=== PATIENT | male | born 1990 | race Caucasian/White ===

== ENCOUNTER 2016-10-07 10:49 | Emergency (ER) | payer MEDICAID ==
[2016-10-07 11:08] VITALS: BP 169/84
--- NOTE | 2016-10-07 11:28 | EDM.PDOC ---
ED HPI GENERAL MEDICAL PROBLEM - General Chief Complaint: General Stated Complaint: L LEG PAIN Time Seen by Provider: 10/07/16 11:15 Source of Information: Reports: Patient History Limitations: Reports: No Limitations - History of Present Illness Onset: Gradual Onset Date: 09/30/16 Duration: Getting Worse Location: Reports: Lower Extremity, Left (left buttock) Quality: Reports: Ache, Throbbing Severity: Moderate Improves with: Reports: Heat Therapy Worsens with: Reports: Other (sitting) Associated Symptoms: Reports: No Other Symptoms Treatments [employer]: Reports: Home Treatments (warm packs) Left Leg Pain Score (Numeric/FACES): 10 - Related Data Allergies Allergy/AdvReac Type Severity Reaction Status Date / Time ciprofloxacin [From Cipro] Allergy Vomiting Verified 04/29/16 09:25 ciprofloxacin HCl Allergy Vomiting Verified 04/29/16 09:25 [From Cipro] clindamycin Allergy Other Verified 04/29/16 09:25 Penicillins Allergy Cannot Verified 04/29/16 09:25 Remember sulfamethoxazole Allergy Other Verified 04/29/16 09:25 [From Septra] trimethoprim [From Septra] Allergy Other Verified 04/29/16 09:25 Home Meds: Home Meds ALPRAZolam [Xanax] 0.5 mg PO QID 03/13/14 [History] QUEtiapine [SEROquel] 1 tab PO BEDTIME 03/13/14 [History] Past Medical History Genitourinary History: Reports: Other (See Below) Other Genitourinary History: doesn't remember, thinks maybe some kidney & liver failure due to past drug use, hospitalized in [place] Musculoskeletal History: Reports: Back Pain, Chronic, Fracture Neurological History: Reports: Headaches, Chronic Psychiatric History: Reports: Anxiety, Bipolar Dermatologic History: Reports: Other (See Below) Other Dermatologic History: sores on skin = MRSA - Infectious Disease History Infectious Disease History: Reports: Chicken Pox, MRSA - Past Surgical History HEENT Surgical History: Reports: Oral Surgery Social & Family History - Tobacco Use Smoking Status *Q: Former Smoker Years of Tobacco use: 2 Packs/Tins Daily: 0.5 Used Tobacco, but Quit: Yes Month Tobacco Last Used: Dec Second Hand Smoke Exposure: No - Caffeine Use Caffeine Use: Reports: None - Alcohol Use Days Per Week of Alcohol Use: 0 - Recreational Drug Use Recreational Drug Use: Yes Drug Use in Last 12 Months: No 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: Daily Recreational Drug Last Use: 5 years ago ED ROS GENERAL - Review of Systems Review Of Systems: See Below Constitutional: Reports: No Symptoms HEENT: Reports: No Symptoms Respiratory: Reports: No Symptoms Cardiovascular: Reports: No Symptoms Musculoskeletal: Reports: No Symptoms Skin: Reports: Lesions Neurological: Reports: No Symptoms ED EXAM, GENERAL - Physical Exam Exam: See Below Exam Limited By: No Limitations General Appearance: Alert, No Apparent Distress Ears: Normal External Exam Nose: Normal Inspection Throat/Mouth: Normal Inspection Head: Normocephalic Neck: Supple, Full Range of Motion Respiratory/Chest: No Respiratory Distress Cardiovascular: Other (normal rate) Skin Exam: Erythema (with associated tenderness and induration to mid left buttock) ED GENERAL MEDICAL PROCEDURES - Additional/Other Procedure(s) Other (Free Text) Procedure(s): Procedure: Incision and drainage Location: Left buttock Preparation: Chloroprep topical Anesthesia: 3 mL 1% lidocaine with epinephrine Area incised with 0.5 cm cruciate incision using #11 blade. Purulent and bloody discharge. Paper tape and gauze bandage applied. Patient tolerated procedure well. Course - Vital Signs Text/Narrative:: Jonathan Rock is a 26 year old male with history of MRSA and frequent skin abscesses who presents with a skin problem. He has developed an abscess over his left buttock over the past week. He notes some discharge from the lesion if he compresses it. No fevers or spreading erythema from wound. He took leftover doxycycline for 5 of the last 7 days but ran out. On my exam there is a tender, erythematous, moderately fluctuant lesion over left buttock. No spreading erythema and patient had non concerning vitals. I performed an incision and drainage procedure with some purulent but mostly bloody drainage. Appropriate dressing was placed and patient instructed on warm compresses and topical cares. No antibiotics indicated with no associated cellulitis or constitutional symptoms. Follow up with PCP in 3-5 days for recheck of lesion. After consulting [facility] database and patient not having recent opiate prescriptions, I did prescribe short course (8 tablets) of [place] for his acute pain. Last Recorded V/S: Last Vital Signs Temp 97.4 F 10/07/16 12:33 Pulse 83 07/03/17 12:33 Resp 14 10/07/16 12:33 BP 169/84 H 10/07/16 12:33 Pulse Ox 98 10/07/16 12:33 - Orders/Labs/Meds Meds: Medications Discontinued Medications Generic Name Dose Route Start Last Admin Trade Name Rico PRN Reason Stop Dose Admin Lidocaine/Epinephrine 10 ml 10/07/16 11:30 10/07/16 12:40 Xylocaine 1% With Epinephrine 1:100,000 INFILT 10/07/16 11:31 10 ml ONETIME ONE Administration Departure - Departure Time of Disposition: 12:50 Disposition: Home, Self-Care 01 Condition: Good Clinical Impression: Skin abscess Qualifiers: Site of cutaneous abscess: buttock Qualified Code(s): L02.31 - Cutaneous abscess of buttock - Discharge Information Instructions: Incision and Drainage, Care After Referrals: Narciso Herbert Sr, MD [Primary Care Provider] - Forms: ED Department Discharge Additional Instructions: Follow up with Dr. Herbert in 3-5 days for recheck of skin. Return to the Emergency Department with fever, spreading redness from wound, or with worsened symptoms of any kind.
[2016-10-07] MEDS ORDERED: Lidocaine 1% with EPINEPHrine 1:100,000 50 ML MDV INFILT ONE (11:30)
== END 2016-10-07 13:03 | disposition home or self-care (01) ==
LOC: JP.ED 10:49
DX: L02.31 Cutaneous abscess of buttock (principal); F41.9 Anxiety disorder, unspecified; Z98.890 Other specified postprocedural states; Z87.891 Personal history of nicotine dependence; Z88.0 Allergy status to penicillin; Z88.1 Allergy status to other antibiotic agents; Z88.2 Allergy status to sulfonamides
CPT/HCPCS: 10060; 99283-25

== ENCOUNTER 2017-08-29 15:38 | Emergency (ER) | payer MEDICAID ==
[2017-08-29 16:05] VITALS: BP 156/86
[2017-08-29] MEDS ORDERED: Ketorolac 60 MG/2 ML SDV IM ONE (16:38)
[2017-08-29] MEDS ORDERED: Cyclobenzaprine 10 MG Tab PO ONE (16:38)
--- NOTE | 2017-08-29 16:39 | EDM.PDOC ---
ED HPI GENERAL MEDICAL PROBLEM - General Chief Complaint: Back Pain or Injury Stated Complaint: BACK PAIN, NUMBNESS IN LEG Time Seen by Provider: 08/29/17 16:39 Source of Information: Reports: Patient History Limitations: Reports: No Limitations - History of Present Illness INITIAL COMMENTS - FREE TEXT/NARRATIVE: PT ARRIVED WITH SEVERE PAIN GOING DOWN THE LEFT LEG. hE HAS TINGLING IN THE LEFT FOOT. tHIS HAS PROGRESSIVELY GETTING WORSE. hE HAS BEEN DOING ALOT OF LIFTING. Onset: Gradual Duration: Day(s):, Getting Worse Location: Reports: Back Associated Symptoms: Reports: No Other Symptoms Left Lower Back Pain Score (Numeric/FACES): 10 - Related Data Allergies Allergy/AdvReac Type Severity Reaction Status Date / Time ciprofloxacin [From Cipro] Allergy Vomiting Verified 08/29/17 16:10 ciprofloxacin HCl Allergy Vomiting Verified 08/29/17 16:10 [From Cipro] clindamycin Allergy Other Verified 08/29/17 16:10 Penicillins Allergy Cannot Verified 08/29/17 16:10 Remember sulfamethoxazole Allergy Other Verified 08/29/17 16:10 [From Septra] trimethoprim [From Septra] Allergy Other Verified 08/29/17 16:10 Home Meds: Home Meds ALPRAZolam [Xanax] 0.5 mg PO QID 03/13/14 [History] QUEtiapine [SEROquel] 1 tab PO BEDTIME 03/13/14 [History] Methocarbamol 1 - 2 tab PO QID PRN 08/29/17 [History] Past Medical History Genitourinary History: Reports: Other (See Below) Other Genitourinary History: doesn't remember, thinks maybe some kidney & liver failure due to past drug use, hospitalized in [place] Musculoskeletal History: Reports: Back Pain, Chronic, Fracture, Other (See Below ) Other Musculoskeletal History: R elbow pain Neurological History: Reports: Headaches, Chronic Psychiatric History: Reports: Anxiety, Bipolar Dermatologic History: Reports: Other (See Below) Other Dermatologic History: sores on skin = MRSA - Infectious Disease History Infectious Disease History: Reports: Chicken Pox - Past Surgical History HEENT Surgical History: Reports: Oral Surgery GI Surgical History: Reports: Appendectomy Musculoskeletal Surgical History: Reports: Other (See Below) Other Musculoskeletal Surgeries/Procedures:: r arm surgery Social & Family History - Tobacco Use Smoking Status *Q: Former Smoker Used Tobacco, but Quit: No Second Hand Smoke Exposure: No - Caffeine Use Caffeine Use: Reports: None - Alcohol Use Days Per Week of Alcohol Use: 0 - Recreational Drug Use Recreational Drug Use: No ED ROS GENERAL - Review of Systems Review Of Systems: See Below Constitutional: Reports: No Symptoms HEENT: Reports: No Symptoms Respiratory: Reports: No Symptoms Cardiovascular: Reports: No Symptoms Endocrine: Reports: No Symptoms GI/Abdominal: Reports: No Symptoms : Reports: No Symptoms Musculoskeletal: Reports: Other ( SEVERE LOW BACK PAIN, PAIN RADIATING DOWN THE LEFT LEG WITH TINGLING IN THE LEFT FOOT. ) ED EXAM,LOWER BACK PAIN/INJURY - Physical Exam Exam: See Below Text/Narrative:: pT HAS SEVERE PAIN IN THE LEFT LOW BACK WITH PAIN RADIATING DOWN THE LEFT LEG AND HE HAS TINGLING IN THE LEFT FOOT. Exam Limited By: No Limitations General Appearance: Alert, Severe Distress Ears: Normal TMs Nose: Normal Inspection Throat/Mouth: Normal Inspection Head: Atraumatic Neck: Normal Inspection Respiratory/Chest: No Respiratory Distress Cardiovascular: Regular Rate, Rhythm Back Exam: Other (PT HAS TENDERNESS IN THE LEFT BUTTOCK AREA. hE HAS A POSITIVE STRAIGHT LEG RAISING AND WEAKNESS IN THE LEFT GREAT [place]. hE HAS NOT HAD A BLOW TO THE BACK. HE HAS BEEN DOING ALOT OF LIFTING. ) Extremities: Normal Inspection Neurological: Alert Psychiatric: Anxious Course - Vital Signs Last Recorded V/S: Last Vital Signs Temp 36.4 C 08/29/17 16:02 Pulse 75 08/29/17 16:02 Resp 16 08/29/17 16:02 BP 156/86 H 08/29/17 16:02 Pulse Ox 98 08/29/17 16:02 - Orders/Labs/Meds Meds: Medications Discontinued Medications Generic Name Dose Route Start Last Admin Trade Name Freq PRN Reason Stop Dose Admin Cyclobenzaprine HCl 5 mg 08/29/17 16:38 08/29/17 16:48 Flexeril PO 08/29/17 16:39 Not Given ONETIME ONE Ketorolac Tromethamine 60 mg 08/29/17 16:38 08/29/17 16:48 Toradol IM 08/29/17 16:39 Not Given ONETIME ONE Departure - Departure Time of Disposition: 16:39 Disposition: Home, Self-Care 01 Condition: Fair Clinical Impression: Lumbar disc disease - Discharge Information Referrals: Narciso Herbert Sr, MD [Primary Care Provider] - Forms: ED Department Discharge Care Plan Goals: ICE OR HEAT TO THE LOW BACK, FLEXERIL 10 MG 1/2 QAM , QNOON AND 1.5 TABS HS, MOTRIN 600MG PO TID, NORCO 5/325 Q6H PRN # 12 FOR SEVERE PAIN, AVOID LIFTING AND PULLING RTC THE FIRST OF THE WEEK FOR LUMBAR mRI-- XRAY WILL CALL TO SCHEDULE THE mri
== END 2017-08-29 17:06 | disposition home or self-care (01) ==
LOC: JP.ED 15:38
DX: M51.36 Other intervertebral disc degeneration, lumbar region (principal); F31.9 Bipolar disorder, unspecified; F41.9 Anxiety disorder, unspecified; Z88.0 Allergy status to penicillin; Z88.1 Allergy status to other antibiotic agents; Z79.899 Other long term (current) drug therapy; Z87.891 Personal history of nicotine dependence
CPT/HCPCS: 99283

== ENCOUNTER 2018-07-21 10:13 | Emergency (ER) | payer MEDICAID ==
--- NOTE | 2018-07-21 11:13 | EDM.PDOC ---
ED HPI GENERAL MEDICAL PROBLEM - General Chief Complaint: General Stated Complaint: LEFT SIDE NUMB, VOMITING, PASSING OUT Time Seen by Provider: 07/21/18 10:50 Source of Information: Reports: Patient History Limitations: Reports: No Limitations - History of Present Illness INITIAL COMMENTS - FREE TEXT/NARRATIVE: 28-year-old male with chronic anxiety, has been struggling with left-sided numbness, very anxious, intermittent nausea and vomiting and he feels like his legs are going to "give out on him". It started 3 days ago when he was in a local business and started to feel dizzy and lightheaded. He denies any pain. Denies fever, but he is continually "chilled". He's also had 2 consistent days of left facial left arm and left leg numbness. When he takes his Xanax he feels like it "makes him worse". Onset: Gradual Duration: Day(s): (3 days) Worsens with: Reports: Other (Seems to worsen when he takes his Xanax) Associated Symptoms: Reports: Loss of Appetite, Malaise, Nausea/Vomiting, Weakness. Denies: Chest Pain, Cough, Headaches Left Shoulder Pain Score (Numeric/FACES): 6 - Related Data Allergies Allergy/AdvReac Type Severity Reaction Status Date / Time ciprofloxacin [From Cipro] Allergy Vomiting Verified 07/21/18 10:41 ciprofloxacin HCl Allergy Vomiting Verified 07/21/18 10:41 [From Cipro] clindamycin Allergy Other Verified 07/21/18 10:41 Penicillins Allergy Cannot Verified 07/21/18 10:41 Remember sulfamethoxazole Allergy Other Verified 07/21/18 10:41 [From Septra] trimethoprim [From Septra] Allergy Other Verified 07/21/18 10:41 Home Meds: Home Meds ALPRAZolam [Xanax] 0.5 mg PO QID 03/13/14 [History] QUEtiapine [SEROquel] 1 tab PO BEDTIME 03/13/14 [History] Past Medical History Genitourinary History: Reports: Other (See Below) Other Genitourinary History: doesn't remember, thinks maybe some kidney & liver failure due to past drug use, hospitalized in [place] Musculoskeletal History: Reports: Back Pain, Chronic, Fracture, Other (See Below ) Other Musculoskeletal History: R elbow pain Neurological History: Reports: Headaches, Chronic Psychiatric History: Reports: Anxiety, Bipolar, Panic Attack, Suicide Attempt, Suicidal Ideation Dermatologic History: Reports: Other (See Below) Other Dermatologic History: sores on skin = MRSA - Infectious Disease History Infectious Disease History: Reports: MRSA - Past Surgical History HEENT Surgical History: Reports: Oral Surgery GI Surgical History: Reports: Appendectomy Musculoskeletal Surgical History: Reports: Other (See Below) Other Musculoskeletal Surgeries/Procedures:: r arm surgery Social & Family History - Tobacco Use Smoking Status *Q: Former Smoker Used Tobacco, but Quit: Yes Month/Year Tobacco Last Used: quit 5 years ago - Caffeine Use Caffeine Use: Reports: None - Recreational Drug Use Recreational Drug Use: Yes Recreational Drug Type: Reports: Methamphetamine ED ROS GENERAL - Review of Systems Review Of Systems: See Below Constitutional: Reports: Chills, Malaise, Weakness. Denies: Fever HEENT: Denies: Vision Change Respiratory: Denies: Shortness of Breath Cardiovascular: Denies: Chest Pain GI/Abdominal: Reports: Nausea, Vomiting. Denies: Abdominal Pain, Diarrhea : Reports: No Symptoms Musculoskeletal: Reports: No Symptoms Skin: Reports: Diaphoresis (Intermittent diaphoresis over the past 2 days) Neurological: Reports: Dizziness, Weakness. Denies: Headache Psychiatric: Reports: Anxiety ED EXAM, GENERAL - Physical Exam Exam: See Below Exam Limited By: No Limitations General Appearance: Alert, Anxious, Other (Appears to be hyperventilating, very anxious) Eye Exam: Bilateral Eye: Normal Inspection Throat/Mouth: Normal Inspection Head: Atraumatic Neck: Normal Inspection Respiratory/Chest: No Respiratory Distress, Lungs Clear Cardiovascular: Regular Rate, Rhythm GI/Abdominal: Non-Tender Neurological: Alert, Oriented, Other (No reproducible asymmetry of strength of the upper or lower extremities, he does have objective numbness of the left arm and hand with light palpation) Psychiatric: Anxious Skin Exam: Warm, Dry Course - Vital Signs Last Recorded V/S: Last Vital Signs Temp 95.7 F 07/21/18 10:33 Pulse 80 07/21/18 10:33 Resp 20 07/21/18 10:33 BP Pulse Ox 98 07/21/18 10:33 - Orders/Labs/Meds Labs: Laboratory Tests 07/21/18 07/21/18 07/21/18 Range/Units 11:08 11:20 11:20 WBC 9.8 (4.5-11.0) K/uL RBC 5.91 H (4.30-5.90) M/uL Hgb 18.2 H* (12.0-15.0) g/dL Hct 50.4 (40.0-54.0) % MCV 85 (80-98) fL MCH 31 (27-31) pg MCHC 36 (32-36) % Plt Count 266 (150-400) K/uL Neut % (Auto) 81 H (36-66) % Lymph % (Auto) 11 L (24-44) % Robertson % (Auto) 7 H (2-6) % Eos % (Auto) 0 L (2-4) % Baso % (Auto) 0 (0-1) % Puncture Site Rt radial ABG pH 7.541 H (7.350-7.450) ABG pCO2 23.1 L (35.0-42.0) mmHg ABG pO2 115.0 H (75.0-100.0) mmHg ABG HCO3 19.7 L (22.0-26.0) mmol/L ABG Total CO2 15.7 L (23.0-27.0) mmol/L ABG O2 Saturation 99.1 H (95.0-98.0) % ABG O2 Content 25.5 H (15.0-23.0) %vol ABG Base Excess -0.1 mm/L ABG Hemoglobin 18.6 H (13.5-18.0) g/dL ABG Oxyhemoglobin 97.6 % ABG Carboxyhemoglobin 0.8 (0.0-1.6) % ABG Methemoglobin 0.7 % Seth Test Passed O2 Delivery Device Room air Sodium 136 L (140-148) mmol/L Potassium 3.5 L (3.6-5.2) mmol/L Chloride 100 (100-108) mmol/L Carbon Dioxide 26 (21-32) mmol/L Anion Gap 13.5 (5.0-14.0) mmol/L BUN 17 (7-18) mg/dL Creatinine 1.2 (0.8-1.3) mg/dL Est Cr Clr Drug Dosing 116.37 mL/min Estimated GFR (MDRD) > 60 (>60) Glucose 122 H (74-106) mg/dL Calcium 10.1 (8.5-10.1) mg/dL Total Bilirubin 1.4 H D (0.2-1.0) mg/dL AST 56 H D (15-37) U/L ALT 136 H (12-78) U/L Alkaline Phosphatase 110 (46-116) U/L Total Protein 8.9 H (6.4-8.2) g/dL Albumin 4.4 (3.4-5.0) g/dL Globulin 4.5 H (2.3-3.5) g/dL Albumin/Globulin Ratio 1.0 L (1.2-2.2) Meds: Medications Discontinued Medications Generic Name Dose Route Start Last Admin Trade Name Vasquezq PRN Reason Stop Dose Admin Lorazepam 1 mg 07/21/18 11:53 07/21/18 12:07 Ativan IM 07/21/18 11:54 1 mg ONETIME ONE Administration - Re-Assessments/Exams Free Text/Narrative Re-Assessment/Exam: 07/21/18 11:13 ABGs, CBC and CMP were obtained and a head CT ordered without contrast. 07/21/18 11:51 Blood gases showed evidence of persistent hyperventilation, with a pH of 7.5 and CO2 only 23. HCO3 is also low. Hemoglobin is elevated, LFTs and bilirubin also mildly elevated although he has no abdominal symptoms. These may be affected by the hyperventilation as well. He was given 1 mg of IM Ativan, was instructed on bag breathing and given 10 additional doses of Ativan to take instead of Xanax over the next 48 hours. He can recheck in 2-3 days if not improving. Departure - Departure Time of Disposition: 12:15 Disposition: Home, Self-Care 01 Condition: Fair Clinical Impression: Hyperventilation syndrome, Anxiety about health - Discharge Information Instructions: Hyperventilation Referrals: Narciso Herbert Sr, MD [Primary Care Provider] - Forms: ED Department Discharge Care Plan Goals: Hold Xanax for the next few days and use Ativan up to every 6-8 hours as needed for anxiety, and consider bag breathing for 10 minutes every hour. Recheck in 2- 3 days if not improving satisfactorily.
[2018-07-21] MEDS: LORazepam 2 MG/ML SDV IM ONE (12:07)
--- NOTE | 2018-07-21 12:33 | CRLCT ---
INDICATION: left sided numbness [address] HEAD WITHOUT CONTRAST TECHNIQUE: Multiple axial CT images were performed through the head without intravenous contrast administration. COMPARISON: No previous studies are currently available for comparison. FINDINGS: The exam is mildly limited by motion. No acute intracranial hemorrhage is identified. No extra-axial collections are evident and there is no mass effect or midline shift. Ventricles are normal in size and configuration. Brain parenchyma appears normal with unremarkable anne-white differentiation. Osseous structures are within normal limits and no fractures are seen. Included portions of the paranasal sinuses and mastoid air cells are normally aerated. IMPRESSION: Normal non-contrast head CT. REGAN GAMBLE MD [facility] Dictated by: Toan Gamble MD @ 07/21/2018 12:31:17 (Electronically Signed)
== END 2018-07-21 12:15 | disposition home or self-care (01) ==
LOC: JP.ED 10:13
DX: F45.8 Other somatoform disorders (principal); F41.9 Anxiety disorder, unspecified; F31.9 Bipolar disorder, unspecified; Z79.899 Other long term (current) drug therapy; Z87.891 Personal history of nicotine dependence; Z88.2 Allergy status to sulfonamides; Z88.8 Allergy status to other drugs, medicaments and biological substances; Z88.0 Allergy status to penicillin
CPT/HCPCS: 36415; 36600; 70450; 80053; 82803; 85025; 96372; 99284; J2060

== ENCOUNTER 2019-05-31 14:09 | Emergency (ER) | payer MEDICAID ==
[2019-05-31 14:38] VITALS: BP 151/81; PULSE 81
[2019-05-31] MEDS ORDERED: cefOXitin 1 GM Vial IVPUSH ONE (14:46)
--- NOTE | 2019-05-31 14:57 | EDM.PDOC ---
ED HPI GENERAL MEDICAL PROBLEM - General Chief Complaint: Lower Extremity Injury/Pain Stated Complaint: L FOOT INJURY Time Seen by Provider: 05/31/19 14:20 Source of Information: Reports: Patient, Old Records History Limitations: Reports: No Limitations - History of Present Illness INITIAL COMMENTS - FREE TEXT/NARRATIVE: 29 yo male presents with redness to the arch of his L foot after stepping on a new screw last night. He presented to the clinic and was given Levaquin. He presented to the pharmacy and he wouldn't fill the Rx due to documented Cipro allergy. Patient comes here for a second opinion basically. 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 (see below) (Cleaned wound at home.) Left Foot Pain Score (Numeric/FACES): 8 - Related Data Allergies Allergy/AdvReac Type Severity Reaction Status Date / Time clindamycin Allergy Other Verified 05/31/19 14:40 Penicillins Allergy Cannot Verified 05/31/19 14:40 Remember sulfamethoxazole Allergy Other Verified 05/31/19 14:40 [From Septra] trimethoprim [From Septra] Allergy Other Verified 05/31/19 14:40 ciprofloxacin [From Cipro] AdvReac Vomiting Verified 05/31/19 15:10 ciprofloxacin HCl AdvReac Vomiting Verified 05/31/19 15:10 [From Cipro] Home Meds: Home Meds ALPRAZolam [Xanax] 0.5 mg PO QID 03/13/14 [History] QUEtiapine [SEROquel] 1 tab PO BEDTIME 03/13/14 [History] Cephalexin [Keflex] 500 mg PO QID #30 capsule 05/31/19 [Rx] Levofloxacin 1 tab PO DAILY 05/31/19 [History] Minocycline [Minocin] 100 mg PO BID #15 cap 05/31/19 [Rx] Past Medical History HEENT History: Reports: None Gastrointestinal History: Reports: Other (See Below) Other Gastrointestinal History: crohns Genitourinary History: Reports: Other (See Below) Other Genitourinary History: doesn't remember, thinks maybe some kidney & liver failure due to past drug use, hospitalized in [place] Musculoskeletal History: Reports: Back Pain, Chronic, Fracture, Other (See Below ) Other Musculoskeletal History: R elbow pain Neurological History: Reports: Headaches, Chronic Psychiatric History: Reports: Anxiety, Bipolar, Panic Attack, Suicide Attempt, Suicidal Ideation Dermatologic History: Reports: Other (See Below) Other Dermatologic History: sores on skin = MRSA - Infectious Disease History Infectious Disease History: Reports: MRSA - Past Surgical History Head Surgeries/Procedures: Reports: None HEENT Surgical History: Reports: Oral Surgery GI Surgical History: Reports: Appendectomy Male Surgical History: Reports: None Neurological Surgical History: Reports: None Musculoskeletal Surgical History: Reports: Other (See Below) Other Musculoskeletal Surgeries/Procedures:: r arm surgery Dermatological Surgical History: Reports: None Social & Family History - Tobacco Use Smoking Status *Q: Former Smoker Years of Tobacco use: 13 Packs/Tins Daily: 2 Used Tobacco, but Quit: Yes Month/Year Tobacco Last Used: 2013 - Caffeine Use Caffeine Use: Reports: Coffee, Tea - Recreational Drug Use Recreational Drug Use: No Review of Systems - Review of Systems Review Of Systems: See Below Constitutional: Reports: No Symptoms Skin: Reports: Erythema (around puncture site of arch.), Wound (arch of L foot, puncture) Neurological: Reports: No Symptoms ED EXAM, GENERAL - Physical Exam Exam: See Below Exam Limited By: No Limitations General Appearance: Alert, WD/WN, No Apparent Distress Extremities: Increased Warmth (L arch of foot), Redness (L arch of foot) Neurological: Alert, Oriented, CN II-XII Intact, Normal Cognition, No Motor/ Sensory Deficits Skin Exam: Warm, Dry, No Rash, Erythema, Increased Warmth (arch of L foot), Other (no drainage, some early lymphadenitis present.) Course - Vital Signs Last Recorded V/S: Last Vital Signs Temp 36.1 C 05/31/19 14:28 Pulse 81 05/31/19 14:37 Resp 16 05/31/19 14:37 BP 151/81 H 05/31/19 14:37 Pulse Ox 97 05/31/19 14:37 - Orders/Labs/Meds Orders: Active Orders 24 hr Category Date Time Status Vaccines to be Administered [RC] PER UNIT ROUTINE Care 05/31/19 15:01 Active cefOXitin [Mefoxin] 2 gm Med 05/31/19 15:30 Active Sodium Chloride 0.9% [Normal Saline] 50 ml IV ONETIME Medication Orders Cefoxitin Sodium 2 gm/ Sodium (Chloride) 50 mls @ 100 mls/hr IV ONETIME ONE Stop: 05/31/19 15:59 Last Admin: 05/31/19 15:10 Dose: 100 mls/hr Meds: Medications Generic Name Dose Route Start Last Admin Trade Name Freq PRN Reason Stop Dose Admin Cefoxitin Sodium 2 gm/ Sodium 50 mls @ 100 mls/hr 05/31/19 15:30 05/31/19 15: 10 Chloride IV 05/31/19 15:59 100 mls/hr ONETIME ONE Administration Discontinued Medications Generic Name Dose Route Start Last Admin Trade Name Freq PRN Reason Stop Dose Admin Diphtheria/Tetanus/Acell Pertussis 0.5 ml 05/31/19 15:01 Adacel IM 05/31/19 15:02 .ONCE ONE Minocycline HCl 200 mg 05/31/19 14:48 Minocin PO 05/31/19 14:49 ONETIME ONE Departure - Departure Time of Disposition: 15:45 Disposition: Home, Self-Care 01 Condition: Fair Clinical Impression: Skin infection Puncture wound of foot Qualifiers: Encounter type: initial encounter Laterality: left Qualified Code(s): S91.332A - Puncture wound without foreign body, left foot, initial encounter - Discharge Information *PRESCRIPTION DRUG MONITORING PROGRAM REVIEWED*: Not Applicable *COPY OF PRESCRIPTION DRUG MONITORING REPORT IN PATIENT THERESA: Not Applicable Prescriptions: Cephalexin [Keflex] 500 mg PO QID #30 capsule Minocycline [Minocin] 100 mg PO BID #15 cap Referrals: PCP,None [Primary Care Provider] - Forms: ED Department Discharge Additional Instructions: Use minocycline and cephalexin as directed. Warm soaks in soapy water several times per day. Crutch walking. Recheck in the clinic tomorrow. Sepsis Event Note - Evaluation Sepsis Screening Result: No Definite Risk - Focused Exam Vital Signs: Vital Signs Temp Pulse Resp BP Pulse Ox 05/31/19 14:37 81 16 151/81 H 97 05/31/19 14:28 36.1 C 86 16 151/80 H 97 Date Exam was Performed: 05/31/19 Time Exam was Performed: 15:17 - My Orders Last 24 Hours: My Active Orders 05/31/19 15:01 Vaccines to be Administered [RC] PER UNIT ROUTINE 05/31/19 15:30 cefOXitin [Mefoxin] 2 gm Sodium Chloride 0.9% [Normal Saline] 50 ml IV ONETIME - Assessment/Plan Last 24 Hours: My Active Orders 05/31/19 15:01 Vaccines to be Administered [RC] PER UNIT ROUTINE 05/31/19 15:30 cefOXitin [Mefoxin] 2 gm Sodium Chloride 0.9% [Normal Saline] 50 ml IV ONETIME
[2019-05-31] MEDS ORDERED: Diphtheria,Pertussis(Acell),Tetanus Vaccine 0.5 ML SDV IM ONE (15:01)
[2019-05-31] MEDS ORDERED: cefOXitin 2 GM in Sodium Chloride 0.9% 50 ML IV ONE (15:30)
== END 2019-05-31 16:08 | disposition home or self-care (01) ==
LOC: JP.ED 14:09
DX: S91.332A Puncture wound without foreign body, left foot, initial encounter (principal); L08.9 Local infection of the skin and subcutaneous tissue, unspecified; Z23 Encounter for immunization; F31.9 Bipolar disorder, unspecified; F41.9 Anxiety disorder, unspecified; Z79.899 Other long term (current) drug therapy; Z87.891 Personal history of nicotine dependence; Z88.0 Allergy status to penicillin; Z88.2 Allergy status to sulfonamides; Z88.1 Allergy status to other antibiotic agents; W22.8XXA Striking against or struck by other objects, initial encounter
CPT/HCPCS: 90471; 90715; 96365; 99283; A9270; J0694; J7050

== ENCOUNTER 2019-10-02 20:25 | Emergency (ER) | payer MEDICAID ==
[2019-10-02 20:41] VITALS: BP 158/95; PULSE 85
--- NOTE | 2019-10-02 21:07 | EDM.PDOC ---
ED HPI GENERAL MEDICAL PROBLEM - General Chief Complaint: Upper Extremity Injury/Pain Stated Complaint: RT BICEP INJURY Time Seen by Provider: 10/02/19 21:00 Source of Information: Reports: Patient History Limitations: Reports: No Limitations - History of Present Illness INITIAL COMMENTS - FREE TEXT/NARRATIVE: Jonathan is a 29 year old male who presents to the ED today with c/o right forearm pain. Patient has hx of bicep tendon repair 3 years ago and has been doing well. Patient was lifting a heavy log earlier today when he had sudden pain in right forearm and has pain with flexion and extension as well as internal rotation of right arm. patient denies any pain above the elbow joint. Patient has taken some leftover Media for pain with really no relief. He declines offer for pain medication here as he drove. 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) Right Arm Pain Score (Numeric/FACES): 10 - Related Data Allergies Allergy/AdvReac Type Severity Reaction Status Date / Time clindamycin Allergy Other Verified 10/02/19 20:49 Penicillins Allergy Cannot Verified 10/02/19 20:49 Remember sulfamethoxazole Allergy Other Verified 10/02/19 20:49 [From Septra] trimethoprim [From Septra] Allergy Other Verified 10/02/19 20:49 ciprofloxacin [From Cipro] AdvReac Vomiting Verified 10/02/19 20:49 ciprofloxacin HCl AdvReac Vomiting Verified 10/02/19 20:49 [From Cipro] Home Meds: Home Meds ALPRAZolam [Xanax] 0.5 mg PO QID 03/13/14 [History] QUEtiapine [SEROquel] 1 tab PO BEDTIME 03/13/14 [History] Past Medical History HEENT History: Reports: None Gastrointestinal History: Reports: Other (See Below) Other Gastrointestinal History: crohns Genitourinary History: Reports: Other (See Below) Other Genitourinary History: doesn't remember, thinks maybe some kidney & liver failure due to past drug use, hospitalized in [place] Musculoskeletal History: Reports: Back Pain, Chronic, Fracture, Other (See Below) Other Musculoskeletal History: R elbow pain Neurological History: Reports: Headaches, Chronic Psychiatric History: Reports: Anxiety, Bipolar, Panic Attack, Suicide Attempt, Suicidal Ideation Dermatologic History: Reports: Other (See Below) Other Dermatologic History: sores on skin = MRSA - Infectious Disease History Infectious Disease History: Reports: MRSA - Past Surgical History Head Surgeries/Procedures: Reports: None HEENT Surgical History: Reports: Oral Surgery GI Surgical History: Reports: Appendectomy Musculoskeletal Surgical History: Reports: Other (See Below) Other Musculoskeletal Surgeries/Procedures:: r arm bicep surgery Social & Family History - Tobacco Use Packs/Tins Daily: 1 - Caffeine Use Caffeine Use: Reports: None - Recreational Drug Use Recreational Drug Use: No Review of Systems - Review of Systems Review Of Systems: Comprehensive ROS is negative, except as noted in HPI. ED EXAM, GENERAL - Physical Exam Exam: See Below Exam Limited By: No Limitations General Appearance: Alert, WD/WN, No Apparent Distress Nose: Normal Inspection Throat/Mouth: Normal Inspection Head: Atraumatic, Normocephalic Neck: Normal Inspection, Supple Respiratory/Chest: No Respiratory Distress Cardiovascular: Normal Peripheral Pulses Extremities: Normal Inspection, Other (Right arm tender, mid distal forearm, radial aspect, strength 5/5 pain worse with flexion of right hand) Neurological: Alert, Oriented, CN II-XII Intact Psychiatric: Normal Affect, Normal Mood Skin Exam: Warm, Dry, Intact Lymphatic: No Adenopathy Course - Vital Signs Last Recorded V/S: Last Vital Signs Temp 36.9 C 10/02/19 20:48 Pulse 85 10/02/19 20:48 Resp 16 10/02/19 20:48 BP 158/95 H 10/02/19 20:48 Pulse Ox 100 10/02/19 20:48 Jonathan is a 29 year old male, presents to the ED today with c/o right arm pain. Please refer to HPI and focused exam. Patient has no signs of complete tear on exam, I think his exam is more consistent with forearm muscle strain, specifically, brachioradialis musculature. xray obtained to rule out any acute bony abnormality. Xray is negative. Patient reassured. He has a brace he has been wearing he had from his surgery which has been helpful. He should continue to wear this and follow up with his primary surgeon on Friday. Ibuprofen/Tylenol for pain. Percocet provided for severe pain. Narcotic safety and side effects discussed. Reasons to return to the ED discussed. MARK recommended. Patient agreeable to plan of care and discharged in stable condition. Departure - Departure Time of Disposition: 22:00 Disposition: Home, Self-Care 01 Condition: Good Clinical Impression: Strain of forearm, right Qualifiers: Encounter type: initial encounter Qualified Code(s): S56.911A - Strain of unspecified muscles, fascia and tendons at forearm level, right arm, initial encounter - Discharge Information Instructions: Muscle Strain, [id number] Referrals: Narciso Herbert Sr, MD [Primary Care Provider] - Forms: ED Department Discharge Additional Instructions: Your xray looks fine, post operative changes from tendon repair seem to be intact. There is no fracture. I think you have sustained a forearm strain. You can continue to wear your brace for the next few days. Follow up with primary surgeon on Friday if pain persists. I would recommend Ibuprofen 600 mg every 6 hours scheduled for the next couple of day. Percocet for severe pain as prescribed. Do not drive or drink alcohol if you take this. Rest, elevate, ice as much as possible, ice for 20 minutes at a time every 2-3 hours for 48 hours. Sepsis Event Note (ED) - Evaluation Sepsis Screening Result: No Definite Risk - Focused Exam Vital Signs: Vital Signs Temp Pulse Resp BP Pulse Ox 10/02/19 20:48 36.9 C 85 16 158/95 H 100 10/02/19 20:39 36.9 C 85 16 158/95 H 100
--- NOTE | 2019-10-02 21:32 | CRLCR ---
HISTORY: Pain. Biceps tendon repair. COMPARISON: None. FINDINGS: Two views of the right forearm. Postsurgical changes are noted. No evidence for acute fracture, dislocation or joint effusion. Dictated by Sheela Jesus MD @ Oct 02 2019 9:31PM Signed by Dr. Sheela Jesus @ Oct 02 2019 9:31PM
== END 2019-10-02 21:58 | disposition home or self-care (01) ==
LOC: JP.ED 20:25
DX: S56.911A Strain of unspecified muscles, fascia and tendons at forearm level, right arm, initial encounter (principal); F31.9 Bipolar disorder, unspecified; F41.9 Anxiety disorder, unspecified; F17.210 Nicotine dependence, cigarettes, uncomplicated; Z88.1 Allergy status to other antibiotic agents; Z88.0 Allergy status to penicillin; Z88.2 Allergy status to sulfonamides; Z79.899 Other long term (current) drug therapy; X50.9XXA Other and unspecified overexertion or strenuous movements or postures, initial encounter
CPT/HCPCS: 73090-RT; 99283-25

== ENCOUNTER 2020-02-11 17:00 | Emergency (ER) | payer MEDICAID ==
[2020-02-11] MEDS ORDERED: Sodium Chloride 0.9% 10 ML Syringe FLUSH PRN (17:18)
[2020-02-11] MEDS ORDERED: HYDROmorphone 0.5 MG/0.5 ML Syringe IVPUSH ONE (17:19)
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
[2020-02-11] MEDS ORDERED: Bacitracin Oint 1 GM U/D Packet TOP ONE (17:34)
[2020-02-11] MEDS ORDERED: Lidocaine 1% 20 ML MDV INJECT ONE (17:34)
[2020-02-11] MEDS ORDERED: cefTRIAXone 1 GM in Sodium Chloride 0.9% 50 ML IV ONE (17:55)
[2020-02-11] MEDS ORDERED: Ondansetron 4 MG/2 ML SDV IVPUSH ONE (17:55)
[2020-02-11] MEDS ORDERED: HYDROmorphone 1 MG/ML Syringe IVPUSH ONE (17:57)
[2020-02-11] MEDS ORDERED: Sodium Chloride 0.9% 1,000 ML IV SCH (18:00)
[2020-02-11] MEDS ORDERED: Ketorolac 30 MG/ML SDV IVPUSH ONE (18:12)
[2020-02-11 19:08] VITALS: BP 138/76; PULSE 96
--- NOTE | 2020-02-14 09:13 | CR ---
Tibia Fibula Lt CLINICAL HISTORY: Trauma FINDINGS: Two views show no evidence of fracture or bone destruction. No soft tissue abnormality is seen. There is a soft tissue defect the along the mid jones region. This is likely a laceration Impression: No fracture or dislocation
== END 2020-02-11 19:08 | disposition home or self-care (01) ==
LOC: JP.ED 17:00
DX: S81.812A Laceration without foreign body, left lower leg, initial encounter (principal); Z88.1 Allergy status to other antibiotic agents; Z88.0 Allergy status to penicillin; Z88.2 Allergy status to sulfonamides; F31.9 Bipolar disorder, unspecified; Z79.899 Other long term (current) drug therapy; V37.5XXA Driver of three-wheeled motor vehicle injured in collision with fixed or stationary object in traffic accident, initial encounter
CPT/HCPCS: 12002; 73590; 96365; 96375; 99283; J0696; J1170; J2001; J7030; J7050; 99284

== ENCOUNTER 2020-08-03 01:56 | Emergency (ER) | payer OTHER, MEDICAID ==
[2020-08-03] MEDS ORDERED: Lactated Ringers 1,000 ML IV SCH (02:00)
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
[2020-08-03] MEDS ORDERED: LORazepam 2 MG/ML SDV IVPUSH ONE (02:07)
[2020-08-03] MEDS ORDERED: Sodium Chloride 0.9% 80 ML IV STA (03:06)
[2020-08-03] MEDS ORDERED: Iopamidol 612 MG/ML 100 ML Bottle IV STA (03:06)
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
[2020-08-03 03:33] VITALS: BP 135/67; PULSE 92
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
== END 2020-08-03 04:06 | disposition home or self-care (01) ==
LOC: JP.ED 01:56
DX: S27.321A Contusion of lung, unilateral, initial encounter (principal); Z88.1 Allergy status to other antibiotic agents; Z88.0 Allergy status to penicillin; Z88.2 Allergy status to sulfonamides; Z79.899 Other long term (current) drug therapy; V48.5XXA Car driver injured in noncollision transport accident in traffic accident, initial encounter
CPT/HCPCS: 36415; 70450; 71260; 72125; 74177; 80053; 80307; 85025; 96374; 99285; J2060; J7120; Q9967

== ENCOUNTER 2022-06-26 19:12 | Emergency (ER) | payer MEDICAID ==
[2022-06-26] MEDS ORDERED: Rocuronium 50 MG/5 ML Vial IV ONE (19:29)
[2022-06-26] MEDS ORDERED: Etomidate 2 MG/ML 10 ML SDV IVPUSH ONE (19:29)
[2022-06-26] MEDS ORDERED: propofoL 100 ML IV SCH (19:30)
[2022-06-26 19:50] LABS: ESTIMATED GFR 81 mL/min (>60)
[2022-06-26] MEDS: LORazepam 2 MG/ML SDV IVPUSH ONE ×2 (20:02→20:39)
[2022-06-26] MEDS: Ondansetron 4 MG/2 ML SDV IVPUSH ONE (20:40)
[2022-06-26] MEDS: Sodium Chloride 0.9% 10 ML Syringe FLUSH PRN (20:41)
[2022-06-26 22:24] VITALS: BP 140/91; PULSE 69
== END 2022-06-26 20:41 ==
LOC: JP.ED 19:12
DX: S06.9X0A Unspecified intracranial injury without loss of consciousness, initial encounter (principal); S01.01XA Laceration without foreign body of scalp, initial encounter; R55 Syncope and collapse; F41.9 Anxiety disorder, unspecified; Z88.1 Allergy status to other antibiotic agents; Z88.0 Allergy status to penicillin; Z20.822 Contact with and (suspected) exposure to COVID-19; W22.09XA Striking against other stationary object, initial encounter
CPT/HCPCS: 36415; 70450; 80053; 85025; 85610; 85730; 87635; 96374; 96375; 96376; 99285; J2060; J2405; J3490; U0002

== ENCOUNTER 2024-02-28 21:56 | Emergency (ER) | payer MEDICAID ==
[2024-02-28 22:05] VITALS: BP 141/84; PULSE 74
== END 2024-02-28 22:49 | disposition home or self-care (01) ==
LOC: JP.ED 21:56
DX: S46.211A Strain of muscle, fascia and tendon of other parts of biceps, right arm, initial encounter (principal); I10 Essential (primary) hypertension; Z90.49 Acquired absence of other specified parts of digestive tract; Z79.899 Other long term (current) drug therapy; Z88.0 Allergy status to penicillin; Z88.1 Allergy status to other antibiotic agents; Z88.2 Allergy status to sulfonamides; X50.0XXA Overexertion from strenuous movement or load, initial encounter
CPT/HCPCS: 99283

== ENCOUNTER 2025-04-01 14:19 | Emergency (ER) | payer MEDICAID ==
[2025-04-01 14:50] VITALS: BP 152/93; PULSE 64
== END 2025-04-01 16:02 | disposition home or self-care (01) ==
LOC: JP.ED 14:19
DX: S60.221A Contusion of right hand, initial encounter (principal); I10 Essential (primary) hypertension; I48.91 Unspecified atrial fibrillation; Z87.891 Personal history of nicotine dependence; Z88.0 Allergy status to penicillin; Z88.8 Allergy status to other drugs, medicaments and biological substances; Z88.1 Allergy status to other antibiotic agents; Z88.2 Allergy status to sulfonamides; Z79.899 Other long term (current) drug therapy; W10.9XXA Fall (on) (from) unspecified stairs and steps, initial encounter
CPT/HCPCS: 73130-26-RT; 73130-RT; 99283